=== PATIENT | female | born 1995 | race African-American/Black ===

== ENCOUNTER 2018-10-13 17:03 | Emergency (ER) | payer MEDICAID ==
[~2018-10-13] VITALS: Ht 162.6 cm; Wt 74.0 kg
[2018-10-13 23:38] LABS: BASOPHILS % 0.5 % (0.0-2.0); EOSINOPHILS % 3.2 % (0.0-5.0); HEMATOCRIT. 36.5 % (36.0-48.0); HEMOGLOBIN. 12.1 g/dL (12.0-16.0); LYMPHOCYTES % 46.8 % (20.0-50.0); MEAN CORPUSCULAR HEMOGLOBIN 31.4 pg (28.0-32.0); MEAN CORPUSCULAR VOLUME 94.3 fL (81.0-99.0); MEAN PLATELET VOLUME 8.7 fl (7.4-10.4); MONOCYTES % 10.8 % (2.0-8.0); NEUTROPHILS % 38.7 % (40.0-76.0); PLATELET 228 x1000/uL (130-400); RED BLOOD CELL COUNT 3.87 mill/uL (4.2-5.4); RED CELL DISTRIBUTION WIDTH 12.8 % (11.6-14.6)
[2018-10-13 23:45] LABS: CHLORIDE 110 mEq/L (98-107)
[2018-10-14 00:30] VITALS: BP 125/65
== END 2018-10-14 00:30 | disposition home or self-care (01) ==
LOC: ER 17:03
DX: R07.9 Chest pain, unspecified (principal); J45.909 Unspecified asthma, uncomplicated
CPT/HCPCS: 36415; 71045; 81025; 84484; 93005; 99284

== ENCOUNTER 2020-03-16 09:16 | Emergency (ER) | payer MEDICAID ==
[~2020-03-16] VITALS: Ht 162.6 cm; Wt 74.8 kg
[2020-03-16 09:19] VITALS: BP 122/61
[2020-03-16] MEDS ORDERED: LORAZEPAM 0.5MG TABLET PO ONE (10:45)
== END 2020-03-16 11:05 | disposition home or self-care (01) ==
LOC: ER 09:16
DX: F41.9 Anxiety disorder, unspecified (principal); J45.909 Unspecified asthma, uncomplicated; F12.10 Cannabis abuse, uncomplicated
CPT/HCPCS: 99283

== ENCOUNTER 2024-11-04 20:42 | Emergency (ER) | payer MEDICAID ==
[~2024-11-04] VITALS: Ht 165.1 cm; Wt 103.4 kg
[2024-11-04 20:58] VITALS: O2SAT 99
[2024-11-05] MEDS: CYCLOBENZAPRINE 10MG TABLET PO ONE (01:11)
[2024-11-05 01:30] LABS: CLARITY URINE CLEAR (CLEAR); COLOR URINE YELLOW (YELLOW); GLUCOSE URINE NEGATIVE (NEGATIVE); KETONES URINE TRACE (NEGATIVE); LEUKOCYTE ESTERASE URINE NEGATIVE (NEGATIVE); NITRITE URINE NEGATIVE (NEGATIVE); OCCULT BLOOD URINE NEGATIVE (NEGATIVE); PH URINE 5.5 (4.5-8.0); PROTEIN URINE NEGATIVE (NEGATIVE); SPECIFIC GRAVITY URINE 1.032 (1.005-1.030)
[2024-11-05 02:16] LABS: BASOPHILS % 0.8 % (0.0-2.0); EOSINOPHILS % 2.2 % (0.0-5.0); HEMATOCRIT. 36.2 % (36.0-48.0); HEMOGLOBIN. 12.1 g/dL (12.0-16.0); MEAN CORPUSCULAR HEMOGLOBIN 31.1 pg (28.0-32.0); MEAN CORPUSCULAR HGB CONC 33.5 g/dL (31.0-37.0); MEAN CORPUSCULAR VOLUME 92.7 fL (81.0-99.0); MEAN PLATELET VOLUME 9.1 fl (7.4-10.4); MONOCYTES % 6.6 % (2.0-8.0); NEUTROPHILS % 50.4 % (40.0-76.0); PLATELET 277 x1000/uL (130-400); RED BLOOD CELL COUNT 3.91 mill/uL (4.2-5.4); WHITE BLOOD COUNT 10.5 x1000/uL (4.5-11.0)
[2024-11-05 02:24] LABS: CHLORIDE 104 mEq/L (98-107); POTASSIUM 3.8 mEq/L (3.5-5.1); SODIUM 136 mEq/L (136-145)
[2024-11-05 02:25] LABS: CARBON DIOXIDE 25 mEq/L (21-32)
[2024-11-05 02:28] LABS: D-DIMER 0.72 mg/L FEU (<0.50); PROTHROMBIN TIME 11.1 sec (9.6-11.0)
[2024-11-05 02:30] LABS: CREATININE 0.8 mg/dL (0.6-1.0); GLUCOSE 112 mg/dL (70-105); UREA NITROGEN BLOOD 13 mg/dL (9-23)
[2024-11-05 02:32] LABS: ALANINE AMINOTRANSFERASE 11 IU/L (10-49); ASPARTATE AMINOTRANSFERASE 11 IU/L (<34); BILIRUBIN DIRECT 0.2 mg/dL (<=3.0); BILIRUBIN TOTAL 0.9 mg/dL (0.1-1.0); PROTEIN TOTAL 7.4 g/dL (6.0-8.3)
[2024-11-05 02:33] LABS: TROPONIN I HIGH SENSITIVITY < 4 ng/L (3.0-34)
[2024-11-05 02:44] LABS: HCG SCREEN NEGATIVE
[2024-11-05] MEDS ORDERED: CYCL10TA21 MT (04:17)
[2024-11-05] MEDS: IOHEXOL-350 100 ML BOTTLE ONE (04:17)
[2024-11-05 04:48] VITALS: BP 107/70; PULSE 86; RESP 16; TEMP 36.9; O2SAT 99
== END 2024-11-05 04:58 | disposition home or self-care (01) ==
LOC: ER 20:42
DX: F41.9 Anxiety disorder, unspecified (principal); F41.0 Panic disorder [episodic paroxysmal anxiety]; R06.02 Shortness of breath; R00.2 Palpitations; J45.909 Unspecified asthma, uncomplicated; F12.90 Cannabis use, unspecified, uncomplicated
CPT/HCPCS: 81025; 99285; 80076; 80048; 81003; 84703; 83880; 85025; 85379; 85610; 85730; 84484; 36415; 71045; 71275; 93970; 93005; Q9967; Z7610

== ENCOUNTER 2024-11-07 22:30 | Emergency (ER) | payer MEDICAID ==
[~2024-11-07] VITALS: Ht 162.6 cm; Wt 100.0 kg
[~2024-11-07 22:30] MED LIST: CYCL10TA21 MT
[2024-11-07 22:34] VITALS: O2SAT 99
[2024-11-07 22:48] VITALS: BP 101/65; PULSE 101; RESP 16; TEMP 36.6; O2SAT 99
[2024-11-08 01:11] LABS: CLARITY URINE CLEAR (CLEAR); COLOR URINE YELLOW (YELLOW); GLUCOSE URINE NEGATIVE (NEGATIVE); KETONES URINE TRACE (NEGATIVE); LEUKOCYTE ESTERASE URINE NEGATIVE (NEGATIVE); NITRITE URINE NEGATIVE (NEGATIVE); OCCULT BLOOD URINE NEGATIVE (NEGATIVE); PROTEIN URINE NEGATIVE (NEGATIVE); SPECIFIC GRAVITY URINE 1.023 (1.005-1.030)
[2024-11-08 01:15] LABS: *AMPHETAMINES SCREEN URINE NEGATIVE (NEGATIVE)
[2024-11-08 01:16] LABS: *BARBITURATES SCREEN URINE NEGATIVE (NEGATIVE); *BENZODIAZEPINES SCREEN URINE NEGATIVE (NEGATIVE); *COCAINE SCREEN URINE NEGATIVE (NEGATIVE); CANNABINOID URINE SCREEN NEGATIVE (NEGATIVE); ECSTASY MDMA SCREEN URINE NEGATIVE (NEGATIVE); METHADONE URINE SCREEN NEGATIVE (NEGATIVE); OPIATES URINE SCREEN NEGATIVE (NEGATIVE); PHENCYCLIDINE URINE SCREEN NEGATIVE (NEGATIVE)
[2024-11-08 01:42] LABS: BASOPHILS % 0.6 % (0.0-2.0); EOSINOPHILS % 2.3 % (0.0-5.0); HEMATOCRIT. 35.7 % (36.0-48.0); HEMOGLOBIN. 11.7 g/dL (12.0-16.0); LYMPHOCYTES % 33.5 % (20.0-50.0); MEAN CORPUSCULAR HEMOGLOBIN 30.7 pg (28.0-32.0); MEAN CORPUSCULAR HGB CONC 32.8 g/dL (31.0-37.0); MEAN CORPUSCULAR VOLUME 93.7 fL (81.0-99.0); MEAN PLATELET VOLUME 8.6 fl (7.4-10.4); MONOCYTES % 8.7 % (2.0-8.0); NEUTROPHILS % 54.9 % (40.0-76.0); PLATELET 289 x1000/uL (130-400); RED BLOOD CELL COUNT 3.81 mill/uL (4.2-5.4); WHITE BLOOD COUNT 10.2 x1000/uL (4.5-11.0)
[2024-11-08 01:55] LABS: CHLORIDE 106 mEq/L (98-107); POTASSIUM 4.3 mEq/L (3.5-5.1); SODIUM 137 mEq/L (136-145)
[2024-11-08 01:56] LABS: CARBON DIOXIDE 24 mEq/L (21-32)
[2024-11-08 02:01] LABS: CREATININE 0.7 mg/dL (0.6-1.0); GLUCOSE 91 mg/dL (70-105); UREA NITROGEN BLOOD 11 mg/dL (9-23)
[2024-11-08 02:02] LABS: ETHANOL BLOOD < 10 mg/dL (<10); HCG SCREEN NEGATIVE
[2024-11-08 02:03] LABS: ACETAMINOPHEN < 2 ug/mL (10-30)
[2024-11-08 02:06] LABS: THYROID STIMULATING HORMONE 2.23 uIU/mL (0.55-4.78)
[2024-11-08 02:26] LABS: PROTHROMBIN TIME 10.8 sec (9.6-11.0)
[2024-11-08 02:31] LABS: TROPONIN I HIGH SENSITIVITY < 4 ng/L (3.0-34)
[2024-11-08] MEDS ORDERED: ALBU18HF2 IH (16:52)
[2024-11-08] MEDS ORDERED: TRAZ-252 MT (16:52)
== END 2024-11-08 02:58 | disposition home or self-care (01) ==
LOC: ER 22:30
DX: F41.9 Anxiety disorder, unspecified (principal); J45.909 Unspecified asthma, uncomplicated; Z79.899 Other long term (current) drug therapy
CPT/HCPCS: 36415; 80048; 80305; 80307; 80320; 80329; 81003; 81025; 84443; 84484; 84703; 85025; 93005; 99284; G0480

== ENCOUNTER 2024-11-08 12:44 | Emergency (ER) | payer MEDICAID ==
[~2024-11-08] VITALS: Ht 162.6 cm; Wt 101.0 kg
[2024-11-08 12:50] VITALS: BP 125/72; TEMP 36.7; O2SAT 99
[2024-11-08 12:51] VITALS: PULSE 102; RESP 18; O2SAT 97
[2024-11-08] MEDS: NICOTINE 21MG PATCH TD ONE (16:16)
[2024-11-08] MEDS: TRAZODONE HCL 50MG TABLET PO SCH (16:16)
[2024-11-08] MEDS ORDERED: TRAZ-252 MT (16:52)
[2024-11-08] MEDS ORDERED: ALBU18HF2 IH (16:52)
== END 2024-11-08 17:28 | disposition home or self-care (01) ==
LOC: ER 12:44
DX: F41.9 Anxiety disorder, unspecified (principal); F32.A Depression, unspecified; F12.10 Cannabis abuse, uncomplicated; J45.909 Unspecified asthma, uncomplicated; Z98.890 Other specified postprocedural states
CPT/HCPCS: 99283

== ENCOUNTER 2024-11-21 13:04 | Emergency (ER) | payer MEDICAID ==
[~2024-11-21] VITALS: Ht 162.6 cm; Wt 106.0 kg
[~2024-11-21 13:04] MED LIST changes: +ALBU18HF2 IH; +TRAZ-252 MT
[2024-11-21 13:20] VITALS: TEMP 36.8; O2SAT 99
[2024-11-21] MEDS: DIPHENHYDRAMINE 25MG CAPSULE PO ONE (14:38)
[2024-11-21] MEDS: HYDROXYZINE 25MG TABLET PO ONE (15:15)
[2024-11-21 16:00] VITALS: BP 98/56; PULSE 70; RESP 18; O2SAT 100
== END 2024-11-21 16:01 | disposition home or self-care (01) ==
LOC: ER 13:04
DX: F41.9 Anxiety disorder, unspecified (principal); F12.90 Cannabis use, unspecified, uncomplicated; Z79.899 Other long term (current) drug therapy
CPT/HCPCS: 99283; 93005; Q0163

== ENCOUNTER 2024-11-21 18:26 | Emergency (ER) | payer MEDICAID ==
[~2024-11-21] VITALS: Ht 162.6 cm; Wt 105.0 kg
[2024-11-21 18:37] VITALS: O2SAT 100
[2024-11-21 20:02] LABS: CLARITY URINE CLEAR (CLEAR); COLOR URINE YELLOW (YELLOW); GLUCOSE URINE NEGATIVE (NEGATIVE); KETONES URINE NEGATIVE (NEGATIVE); LEUKOCYTE ESTERASE URINE NEGATIVE (NEGATIVE); NITRITE URINE NEGATIVE (NEGATIVE); OCCULT BLOOD URINE NEGATIVE (NEGATIVE); PH URINE 5.5 (4.5-8.0); PROTEIN URINE NEGATIVE (NEGATIVE); SPECIFIC GRAVITY URINE 1.018 (1.005-1.030); UROBILINOGEN URINE 0.2 E.U./dL (0.2-1.0)
[2024-11-21 20:15] LABS: *AMPHETAMINES SCREEN URINE NEGATIVE (NEGATIVE); *BARBITURATES SCREEN URINE NEGATIVE (NEGATIVE); *BENZODIAZEPINES SCREEN URINE NEGATIVE (NEGATIVE); *COCAINE SCREEN URINE NEGATIVE (NEGATIVE); METHADONE URINE SCREEN NEGATIVE (NEGATIVE); OPIATES URINE SCREEN NEGATIVE (NEGATIVE); PHENCYCLIDINE URINE SCREEN NEGATIVE (NEGATIVE)
[2024-11-21 20:16] LABS: CANNABINOID URINE SCREEN NEGATIVE (NEGATIVE); ECSTASY MDMA SCREEN URINE NEGATIVE (NEGATIVE)
[2024-11-21 20:19] LABS: BASOPHILS % 0.9 % (0.0-2.0); EOSINOPHILS % 2.4 % (0.0-5.0); HEMATOCRIT. 35.4 % (36.0-48.0); LYMPHOCYTES % 36.7 % (20.0-50.0); MEAN CORPUSCULAR HEMOGLOBIN 31.2 pg (28.0-32.0); MEAN CORPUSCULAR HGB CONC 33.8 g/dL (31.0-37.0); MEAN CORPUSCULAR VOLUME 92.2 fL (81.0-99.0); MEAN PLATELET VOLUME 9.2 fl (7.4-10.4); MONOCYTES % 8.2 % (2.0-8.0); NEUTROPHILS % 51.8 % (40.0-76.0); PLATELET 277 x1000/uL (130-400); RED BLOOD CELL COUNT 3.84 mill/uL (4.2-5.4); WHITE BLOOD COUNT 9.9 x1000/uL (4.5-11.0)
[2024-11-21 20:26] LABS: CHLORIDE 106 mEq/L (98-107); POTASSIUM 3.4 mEq/L (3.5-5.1); SODIUM 139 mEq/L (136-145)
[2024-11-21 20:27] LABS: CALCIUM 9.1 mg/dL (8.7-10.4); CARBON DIOXIDE 23 mEq/L (21-32)
[2024-11-21 20:32] LABS: CREATININE 0.7 mg/dL (0.6-1.0); GLUCOSE 101 mg/dL (70-105); UREA NITROGEN BLOOD 8 mg/dL (9-23)
[2024-11-21 20:33] LABS: ETHANOL BLOOD < 10 mg/dL (<10)
[2024-11-21 20:34] LABS: ACETAMINOPHEN < 2 ug/mL (10-30)
[2024-11-22] MEDS: ACETAMINOPHEN 325MG TABLET PO ONE (09:52)
[2024-11-22] MEDS: LORAZEPAM 1MG TABLET PO ONE (09:53)
[2024-11-22] MEDS ORDERED: HYDROXYZINE 25MG TABLET PO PRN (12:15)
[2024-11-22 15:14] VITALS: BP 124/66; PULSE 62; RESP 18; TEMP 36.8; O2SAT 99
[2024-11-23] MEDS ORDERED: ARIPIPRAZOLE 5MG TABLET PO SCH (09:00)
== END 2024-11-22 16:20 ==
LOC: ER 18:26
DX: R45.851 Suicidal ideations (principal); J45.909 Unspecified asthma, uncomplicated; F12.90 Cannabis use, unspecified, uncomplicated; F41.9 Anxiety disorder, unspecified; F32.A Depression, unspecified; Z20.822 Contact with and (suspected) exposure to COVID-19; Z98.890 Other specified postprocedural states; Z79.899 Other long term (current) drug therapy
CPT/HCPCS: 80305; 80048; 81003; 81025; 80307; 80329; 80320; 85025; 36415; 99285; 87426; Z7610 ×3; G0480